=== PATIENT | male | born 1970 | race Caucasian/White ===

== ENCOUNTER 2021-01-14 14:47 | Outpatient (CLI) | payer BC, SELFPAY ==
--- NOTE | ~2021-01-14 | XR_ITS ---
XR ribs RT 2V DATE: 01/14/2021 15:09 INDICATION: Right anterolateral chest pain following injury from fall. TECHNIQUE: 3 views COMPARISON: None FINDINGS: There is some deformity at the anterolateral aspect of the right fifth and sixth ribs which may be recent or old fracture deformities. Clinical correlation is advised. No other rib fracture is evident. There is diffuse osteopenia. The right lung infiltrate or pneumothorax. No right pleural effusion. IMPRESSION: Cannot exclude recent anterolateral right fifth or sixth rib fractures; clinical correlat ion is advised Reviewed, dictated and finalized at location A. IMPRESSION: Cannot exclude recent anterolateral right fifth or sixth rib fractu res; clinical correlation is advised
== END 2021-01-14 14:48 | disposition home or self-care (01) ==
LOC: ANHIMG 14:54
PROVIDERS: PCP Nurse Practitioner Family; Visit Provider Nurse Practitioner Family
DX: R07.81 Pleurodynia (principal)
CPT/HCPCS: 71100

== ENCOUNTER 2023-01-18 14:06 | Emergency (ER) | payer BC, SELFPAY ==
[2023-01-18] VITALS (24 sets, daily range): BP systolic 144–177; BP diastolic 96–148; PULSE 72–87; RESP 16–18; TEMP 36.6–36.7; O2SAT 98–100
--- NOTE | ~2023-01-18 | XR_ITS ---
EXAMINATION: XR chest 1V Exam Date/Time: 01/18/2023 19:35 CDT HISTORY: dizziness- HTN Comparison: None. RESULT: Lines, tubes, and devices: None. Lungs and pleura: Left basilar airspace disease. Cardiomediastinal silhouette: Mild arch calcification. Other: No acute osseous or upper abdominal finding. IMPRESSION: Bibasilar airspace disease may represent infection or atelectasis. Reviewed, dictated and finalized at location K.
--- NOTE | ~2023-01-18 | CT_ITS ---
EXAMINATION: CT brain wo con DATE: 01/18/2023 19:37 INDICATION: Dizziness/diff speaking 2 days ago . TECHNIQUE: Computed tomography (CT) of the head was performed without intravenous contrast. The mA wa s adjusted according to patient size. Iterative reconstruction technique was employed. The dose-lengt h product was 605.33 mGy-cm. COMPARISON: None. FINDINGS: No acute intracranial hemorrhage or extra-axial fluid collection. No hydrocephalus, mass, or herniation. No acute ischemic infarct. Unremarkable dural venous sinus attenuation. No acute osseous abnormality. Air-fluid level in the right sphenoid sinus, the remaining aerated spaces are clear. IMPRESSION: No acute intracranial process. Right sphenoid sinus findings may reflect acute sinusitis in the appro priate clinical context. Reviewed, dictated and finalized at location K. IMPRESSION: No acute intracranial process. Right sphenoid sinus findings may reflect acute sinusitis in the appropriate clinical context.
--- NOTE | 2023-01-18 19:26 | ECG_ITS ---
Measurements Intervals [place] Rate: 78 P: 24 NE: 152 QRS: -39 QRSD: 76 T: 22 QT: 356 QTc: 407 Interpretive Statements SINUS RHYTHM MARKED LEFT AXIS DEVIATION [QRS AXIS < -30] PATTERN CONSISTENT WITH PULMONARY DISEASE NO PREVIOUS ECG AVAILABLE FOR COMPARISON Electronically Signed On 01-19-2023 14:37:01 CDT by Anai Goldberg M.D.
[2023-01-18 19:47] LABS: Glucose Point of Care 80 mg/dl (65-105)
[2023-01-18] MEDS: SODIUM CHLORIDE 0.9% IV 1,000 ML 999 ML IV CONT (20:01)
[2023-01-18 20:11] LABS: Basophils Absolute Auto 0.1 K/mm3 (0.0-0.1); Basophils Percent Auto 0.7 % (0.2-1.2); Eosinophils Absolute Auto 0.2 K/mm3 (0-0.3); Eosinophils Percent Auto 2.2 % (0-4.4); Hematocrit 45.6 % (42.0-52.0); Hemoglobin 15.4 g/dL (14.0-18.0); Immature Granulocyte Absolute 0.03 K/mm3 (0.00-0.031); Immature Granulocyte Percent A 0.4 % (0-0.5); Lymphocytes Percent Auto 29.4 % (18.3-44.2); Mean Corpuscular HGB Conc 33.8 g/dl (32-36); Mean Corpuscular Hemoglobin 30.9 pg (26-34); Mean Corpuscular Volume 91.6 fl (80-100); Mean Platelet Volume 9.5 fl (7.4-10.4); Monocytes Absolute Auto 0.7 K/mm3 (0.1-0.6); Monocytes Percent Auto 8.2 % (2.6-8.5); Neutrophils Absolute Auto 4.8 K/mm3 (1.3-6.7); Neutrophils Percent Auto 59.1 % (45.5-73.1); Platelet Count Result 212 k/mm3 (150-375); Red Blood Count 4.98 M/mm3 (4.6-6.20); Red Cell Distribution Width 12.8 % (11.5-14.5); White Blood Count 8.2 K/mm3 (4.5-10.0)
[2023-01-18 20:21] LABS: Alanine Aminotransferase 30 U/L (6-50); Albumin Level 4.9 g/dL (3.5-5.1); Alkaline Phosphatase 60 U/L (38-126); Anion Gap 8 mmol/L (8-16); Aspartate Amino Transferase 32 U/L (17-59); Bilirubin,Total 0.8 mg/dL (0.2-1.3); Blood Urea Nitrogen 21 mg/dL (9-20); Calcium 9.6 mg/dL (8.4-10.2); Carbon Dioxide 29 mmol/L (22-30); Chloride 101 mmol/L (98-107); Estimated CRCL calculation 78 ml/min; Estimated Glomerular Filt Rate > 60; Glucose 94 mg/dL (65-110); Lipase 103 U/L (23-300); Magnesium 2.4 mg/dL (1.6-2.3); Phosphorus 3.9 mg/dL (2.5-4.5); Potassium 4.2 mmol/L (3.4-5.0); Sodium 138 mmol/L (137-145)
--- NOTE | 2023-01-18 20:23 | ED.GENADULT ---
HPI - General Adult General Chief complaint: Unspecified Stated complaint: foggy headed Time Seen by Provider: 01/18/23 18:59 History of Present Illness HPI narrative: This is a 52-year-old male presenting ED with a chief complaint of not feeling well. Patient said 2 days ago he had a headache throughout most the day. While he was at dinner with his in-laws he started to feel flushed, had difficulty speaking and felt like he was going to pass out. He then went and sat in his car with complete resolution of symptoms and approximately 30 minutes. After that he did have some abdominal cramping and diarrhea. He did not have any focal weakness, facial droop or slurred speech at that time. Over the last 2 days the patient has felt weak but with no focal complaints. He is here today because his made him come to the emergency department. Patient denies fever, chills, congestion,chest pain, difficulty breathing, double vision, slurred speech, arm weakness. Related Data Allergies Allergy/AdvReac Type Severity Reaction Status Date / Time No Known Allergies Allergy Verified 01/18/23 18:01 [facility] Past Medical History Medical History HTN (hypertension) Exam Narrative: APPEARANCE: No apparent distress. healthy and well-appearing Head: atraumatic. EYES: EOMI, NOSE: Atraumatic NECK: Trachea midline RESPIRATORY: No increased rate of breathing, clear to auscultation CARDIOVASCULAR: RRR, no peripheral edema ABDOMINAL: Non-distended, soft nontender no guarding MUSCULOSKELETAl: No obvious deformities NEURO: Alert. Cranial nerves 2-12 grossly intact. Sensation light touch, motor function cerebellar function intact for 4 extremities. Gait exam was normal. NIH 0 SKIN:: Warm, dry. Normal color PSYCHIATRIC: Normal affect Course Vital Signs Vital signs: Vital Signs Temperature 98 F 01/18/23 14:09 Pulse Rate 82 01/18/23 14:09 Respiratory Rate 18 01/18/23 14:09 Blood Pressure 155/101 H 01/18/23 14:09 Pulse Oximetry 99 01/18/23 14:09 Oxygen Delivery Room Air 01/18/23 14:09 Temperature 98.0 F 01/18/23 16:18 Pulse Rate 72 01/18/23 18:08 Respiratory Rate 16 01/18/23 16:18 Blood Pressure 144/104 H 01/18/23 20:01 Pulse Oximetry 99 01/18/23 20:38 Oxygen Delivery Room Air 01/18/23 14:09 Medical Decision Making MDM Narrative Medical decision making narrative: -Presentation: 52-year-old male history of hypertension presenting 2 days after he had a 30 minute episode of flushing, lightheadedness and presyncope. 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 CT head negative for acute findings. Viral swabs negative. Chest x-ray unremarkable. Independent EKG interpretation: Rhythm [sinus], Rate [78], [place] -[normal], [place] -[normal], QRS [narrow], QTC [normal], T waves -[negative for concerning inversions], ST Segments - [Negative for concerning elevations] Final interpretations: [Normal Sinus Rhythm] -Interventions: 1 L normal saline -Shared decision making / Disposition: Patient's workup has been negative. He had an episode of flushing and presyncope of unknown etiology. At this time he is well appearing normal vital signs and normal physical exam. I discussed admission for MRI and further workup but the patient declined. I believe the patient is safe for outpatient follow-up. Patient will be discharged follow-up with primary care for physician. Vital Signs Vital Signs: Vital Signs Temperature 98 F 01/18/23 14:09 Pulse Rate 82 01/18/23 14:09 Respiratory Rate 18 01/18/23 14:09 Blood Pressure 155/101 H 01/18/23 14:09
[2023-01-18 20:25] LABS: Influenza A QL RT-PCR Negative (Negative); Influenza B QL RT-PCR Negative (Negative); RSV RNA, RT-PCR Negative (Negative); SARS-CoV-2 RNA PCR Negative (Negative)
[2023-01-18 20:33] LABS: NT Pro B Type Natriuretic Pept < 20 pg/mL (19.9-100); Troponin I < 0.012 ng/mL (0.000-0.034)
[2023-01-18 21:00] LABS: Appearance Urine Turbid (Clear); Bacteria Urine None Seen /hpf; Bilirubin Urine Negative (Negative); Blood Urine Negative (Negative); Color Urine Yellow (Yellow); Glucose Urine UA Negative (Negative); Ketones Urine Negative (Negative); Leukocyte Esterase Ur Negative LEU/UL (Negative); Nitrate Urine Negative (Negative); Non Pathogenic Casts 0-2; Protein Urine Negative (Negative); RBC Urine 0-2 /hpf (0-2); Specific Grav Ur 1.019 (1.001-1.035); Squamous Epithelial Cell Urine None seen /hpf (Few); WBC Urine 0-5 /hpf; pH Urine 7.5 (5.0-9.0)
[2023-01-18 21:02] LABS: Add Urine Microscopic? YES
== END 2023-01-18 21:16 | disposition home or self-care (01) ==
PROVIDERS: Emergency Provider Emergency Medicine; PCP Nurse Practitioner Family
DX: R55 Syncope and collapse (principal); Z20.822 Contact with and (suspected) exposure to COVID-19; I10 Essential (primary) hypertension
CPT/HCPCS: 36415; 70450; 71045; 80053; 81001; 82948; 83690; 83735; 83880; 84100; 84443; 84484; 85025; 87637; 93005; 96360; 99284; J7030

== ENCOUNTER 2023-03-26 14:26 | Emergency (ER) | payer BC, SELFPAY ==
[2023-03-26 14:45] VITALS: BP 129/90; PULSE 98; RESP 18; O2SAT 96
--- NOTE | 2023-03-26 18:00 | PC.NURSE ---
pt to desk, states he is leaving. advised to return if symptoms get worse. verbalized understanding
== END 2023-03-26 18:26 | disposition left against medical advice (07) ==
PROVIDERS: PCP Nurse Practitioner Family
DX: Z53.21 Procedure and treatment not carried out due to patient leaving prior to being seen by health care provider (principal)
CPT/HCPCS: 99199

== ENCOUNTER 2023-03-26 18:18 | Emergency (ER) | payer BC, SELFPAY ==
--- NOTE | ~2023-03-26 | XR_ITS ---
EXAMINATION: XR abdomen obstructive series DATE: 03/26/2023 18:44 INDICATION: Abdominal pain TECHNIQUE: Upright and supine views of the abdomen were obtained. COMPARISON: None. FINDINGS: The bowel gas pattern is unremarkable. A moderate volume of colonic stool is present. There is at least mild lumbar spondylosis. Phleboliths are noted in the left pelvis. IMPRESSION: 1. No radiographic correlate for the patient's symptoms. Reviewed, dictated and finalized at location F.
--- NOTE | 2023-03-26 18:19 | ED.ABDPAIN ---
HPI - Abdominal Pain General Chief Complaint: Abdominal Pain Stated Complaint: Abdominal Pain Time Seen by Provider: 03/26/23 18:19 Source: patient Mode of arrival: ambulatory Limitations: no limitations History of Present Illness HPI narrative: Jean Marie is a 52-year-old male patient presenting to the clinic today with complaints of sharp left lower quadrant abdominal pain that began 5 days ago. Pain is worse with bending and flexing his left hip. He states that he started having pain kind of generalized in the abdomen however is now focused in the left lower quadrant. Did have 1 episode of vomiting after eating on Wednesday when his abdominal pain started. He went to the ER today and waited for 3.5 hours and then decided to leave without being seen. He reports no fever or chills. Denies any bloody stools or diarrhea. Denies any blood in his urine or any urinary symptoms. No recent weight loss or weight gain. History of rupture bowel when he was a child. Last bowel movement was 1-2 days ago and normal for the patient Related Data Home Medications Medication Instructions Recorded Confirmed levothyroxine 88 mcg capsule 88 mcg PO DAILY 02/18/23 03/26/23 lisinopril 10 mg tablet 10 mg PO DAILY 02/18/23 03/26/23 Allergies Allergy/AdvReac Type Severity Reaction Status Date / Time No Known Allergies Allergy Verified 03/26/23 18:20 Review of Systems Review of Systems: Pertinent positives per HPI. Patient denies any fever, chills, rash, headache, visual changes, dizziness, cough, runny nose, sore throat, shortness of breath, chest pain, palpitations, nausea, vomiting, diarrhea, constipation, or any urinary issues. [facility] Past Medical History Medical History HTN (hypertension) Social History Social History Smoking status: Never smoker Alcohol intake: never Substance use: never Substance use type: does not use Current Housing: Decline to Answer Concerned About Future Housing: Decline to Answer Difficulty Paying Gas/Electric Bills: Decline to Answer Difficulty Paying for Meds: Decline to Answer Currently Unemployed: Decline to Answer Education: Decline to Answer Difficulty w/ Childcare or Family Care: Decline to Answer Comments At the time of my signature, I reviewed and agree with the nursing past medical, surgical, social, and family history. There is no relevant family history pertinent to the patient complaint. Exam Narrative: General: Well-developed, well nourished, in no apparent distress. Head: Normocephalic, atraumatic. Cardio: Regular rate and rhythm, s1 and s2 normal, no murmur appreciated. Resp: Clear to auscultation bilaterally, no rhonchi, rales, wheezing or rubs. Abdomen: Soft, pliable, bowel sounds present in all quadrants, tender to palpation over the left lower quadrant, no organomegly, no CVAT tenderness. Course Course Emergency Course: Portions of this record may have been created with voice recognition software. Level of Care: Express Care Visit Vital Signs Vital signs: Vital signs reviewed MDM - Abdominal Pain MDM Narrative Medical decision making narrative: At the time of visit patient is resting comfortably on the exam table. Patient has left lower quadrant abdominal pain. X-ray was performed and shows no radiological evidence of any concerns correlating with the patient's symptoms. Patient is nontoxic appearing. recommend transfer to the ER for further evaluation however patient declines and would like to be discharged home as he has already been to the ER and waited several hours today. I suspect patient may have early diverticulitis. AMA was signed declination of transfer to the ER and risk and benefits were explained. Discussed outpatient treatment with fluids, rest, and increasing his diet gradually to a low-fat diet. Recommend patient
[2023-03-26 18:30] VITALS: BP 144/92; PULSE 88; RESP 18; TEMP 36.1; O2SAT 100
== END 2023-03-26 19:23 | disposition left against medical advice (07) ==
PROVIDERS: Emergency Provider Nurse Practitioner Family; PCP Nurse Practitioner Family
DX: R10.32 Left lower quadrant pain (principal); I10 Essential (primary) hypertension
CPT/HCPCS: 74019; 99213; G0463

== ENCOUNTER 2023-07-19 15:28 | Emergency (ER) | payer BC, SELFPAY ==
--- NOTE | 2023-07-19 15:40 | ED.URI ---
HPI - URI/Sore Throat General Chief Complaint: Upper Respiratory Infection Stated Complaint: cough Time Seen by Provider: 07/19/23 16:12 Source: patient, RN notes reviewed and old records reviewed Mode of arrival: ambulatory Limitations: no limitations History of Present Illness HPI Narrative: 53-year-old male presents to the [facility] with complaints of cough worse at night since Wednesday. Reports a change in his voice. Reports a scratchy for ways. Patient denies any fevers. Denies any other complaints. Related Data Home Medications Medication Instructions Recorded Confirmed lisinopril 10 mg tablet 10 mg PO DAILY 02/18/23 07/19/23 Allergies Allergy/AdvReac Type Severity Reaction Status Date / Time No Known Allergies Allergy Verified 07/19/23 17:38 Review of Systems Review of Systems: All systems reviewed & are unremarkable except as noted in HPI and below Constitutional: Constitutional: Reports no additional constitutional complaints Eyes: Eyes: Reports no additional eye complaints ENT: Reports as per HPI Cardiovascular: Cardiovascular: Reports no additional cardiovascular complaints, Denies chest pain and Denies dyspnea Respiratory: Respiratory: Reports as per HPI, Denies chest congestion, Reports cough and Denies dyspnea Gastrointestinal: Gastrointestinal: Reports no additional gastrointestinal complaints, Denies abdominal pain, Denies nausea and Denies vomiting Musculoskeletal: Musculoskeletal: Reports no additional musculoskeletal complaints Integumentary/Breasts: Skin/Breast: Reports system reviewed and no additional complaints, except as docu Neurologic: Reports system reviewed and no additional complaints, except as documented Psychiatric: Psychiatric: Reports no additional psychiatric complaints Allergic/Immunologic: Allergic/Immunologic: Reports no additional allergic/immunologic complaints [facility] Past Medical History Medical History HTN (hypertension) Social History Social History Smoking status: Never smoker Alcohol intake: never Substance use: never Substance use type: does not use Current Housing: Decline to Answer Concerned About Future Housing: Decline to Answer Difficulty Paying Gas/Electric Bills: Decline to Answer Difficulty Paying for Meds: Decline to Answer Currently Unemployed: Decline to Answer Education: Decline to Answer Difficulty w/ Childcare or Family Care: Decline to Answer Comments At the time of my signature, I reviewed and agree with the nursing past medical, surgical, social, and family history. There is no relevant family history pertinent to the patient complaint. Exam Const: General: cooperative, healthy appearing, comfortable, no acute distress, well developed, alert and well nourished Nutritional Appearance: well nourished Orientation/consciousness: patient oriented x3 Limitations: no limitations HENMT: Head: normal to inspection Ears: hearing grossly normal bilaterally, external ears normal, TM's normal bilaterally, EAC's normal, mastoids normal and no periauricular adenopathy Face/Nose/Sinus: Normal external nose present, Normal nares present, Normal nasal mucous membranes and turbinates present, normal facial exam and face symmetric Face and sinus: normal facial exam and face symmetric Mouth: Yes Normal oral and palatal mucosa present, Yes lip normal and Yes moist mucous membranes Throat: posterior oropharynx normal and uvula midline Eyes: General: appearance normal, both eyes and all related structures Alignment and Position: alignment normal Periorbital: periorbital findings normal Pupils: Equal, round and reactive pupils present EOM: EOMs intact bilaterally Neck: Neck: normal visual inspection, full ROM, no lymphadenopathy and no meningeal signs Chest: Chest palpation & inspection: normal inspection of the chest Resp
[2023-07-19 16:14] VITALS: BP 148/94; PULSE 82; RESP 18; TEMP 36.4; O2SAT 100
== END 2023-07-19 16:40 | disposition home or self-care (01) ==
PROVIDERS: Emergency Provider Nurse Practitioner; PCP Nurse Practitioner Family
DX: J40 Bronchitis, not specified as acute or chronic (principal); I10 Essential (primary) hypertension
CPT/HCPCS: 99213; G0463

== ENCOUNTER 2023-11-26 13:32 | Emergency (ER) | payer BC, SELFPAY ==
--- NOTE | 2023-11-26 13:37 | ED.EXTPRO ---
HPI - Extremity Problem General Chief complaint: Extremity Problem,Nontraumatic Stated complaint: lt elbow pain Source: patient Mode of arrival: ambulatory Limitations: no limitations History of Present Illness HPI Narrative: 53 y/o male presented for c/o flare of chronic left elbow pain x2 days. Denies recent injury. States he follows with ortho for this, and is due for a cortisone injection but the doctor is out of the office. Denies swelling, discoloration, warmth, numbness or tingling to the hand/arm. Reports slightly decreased ROM due to pain and decreased senior java web developer strength. States he takes ibuprofen without any relief. Related Data Home Medications Medication Instructions Recorded Confirmed lisinopril 10 mg tablet 10 mg PO DAILY 02/18/23 11/26/23 albuterol sulfate 90 mcg/actuation 2 puff inhalation QID shortness of 11/26/23 11/26/23 aerosol inhaler breath or wheezing levothyroxine 88 mcg tablet mcg 11/26/23 Allergies Allergy/AdvReac Type Severity Reaction Status Date / Time No Known Allergies Allergy Verified 11/26/23 13:43 Review of Systems Review of Systems: CONSTITUTIONAL: Denies body aches, fever, chills CARDIOVASCULAR: Denies chest pain, palpitations, or edema. RESPIRATORY: Denies cough or dyspnea. SKIN: Denies rash, itching, or wounds. MUSCULOSKELETAL: reports left elbow pain Denies back pain, or myalgia. NEUROLOGIC: Denies headache, numbness, tingling, or weakness. All systems reviewed & are unremarkable except as noted in HPI and below PMFSH Past Medical History Medical History HTN (hypertension) Social History Social History Smoking status: Never smoker Alcohol intake: never Substance use: never Substance use type: does not use Current Housing: Decline to Answer Concerned About Future Housing: Decline to Answer Difficulty Paying Gas/Electric Bills: Decline to Answer Difficulty Paying for Meds: Decline to Answer Currently Unemployed: Decline to Answer Education: Decline to Answer Difficulty w/ Childcare or Family Care: Decline to Answer Comments At time of signature, I have reviewed and agree with nursing past medical, surgical, social and family history unless otherwise noted. Please see nursing chart for further information. There is no relevant family history pertinent to the presenting complaint Exam Narrative: GENERAL: Well-appearing CHEST: Speaks in full sentences. No respiratory distress. HEART: Regular rate and rhythm. Normal and equal peripheral pulses. EXTREMITIES: Left arm and hand has slightly limited strength, slightly limited range of motion at elbow due to pain with movement, Tender to medial and lateral epicondyle. normal sensation, No swelling, warmth, or ecchymosis No open wounds, or obvious deformity; alignment normal, pulse palpable and equal bilaterally, skin warm, dry, pink. Capillary refill less than 3 seconds. SKIN: Warm, dry, no rash. NEURO: Alert and oriented x3. PSYCH: Normal mood and affect Course Course Emergency Course: Patient is aware of diagnosis, understands and agrees to treatment plan. Anticipatory guidance given. Patient agrees to follow-up as directed and is aware of reasons to seek care at the emergency department. Portions of this record may have been created with voice recognition software Level of Care: Express Care Visit Vital Signs Vital signs: Reviewed MDM - Extremity (Nontraumatic) MDM Narrative Medical decision making narrative: Discussed physical exam findings. Pt will f/u with ortho, rx medrol. Advised supportive measures and signs/symptoms to go to the ER. Pt is appropriate for outpt treatment and f/u. Differential Diagnosis Differential diagnosis: Likely other (osteoarthritis, elbow dislocation, septic bursitis, epicondylitis, biceps tendon rupture) Discharge Plan Discharge Clinical I
[2023-11-26 13:42] VITALS: BP 166/99; PULSE 89; RESP 14; TEMP 36.6; O2SAT 98
[2023-11-26 13:43] VITALS: BP 166/99; PULSE 89; RESP 14; TEMP 36.6; O2SAT 89
== END 2023-11-26 13:57 | disposition home or self-care (01) ==
PROVIDERS: Emergency Provider Nurse Practitioner Family
DX: M25.522 Pain in left elbow (principal); I10 Essential (primary) hypertension
CPT/HCPCS: 99213; G0463